=== PATIENT | male | born 1955 | race Caucasian/White ===

== ENCOUNTER 2021-12-26 11:00 | Outpatient (CLI) | payer BC, SELFPAY ==
[2021-12-26 22:16] LABS: Albumin* 4.2 g/dL (3.3-5.0)
[2021-12-26 22:17] LABS: Chloride* 100 mmol/L (96-114); Potassium* 4.1 mmol/L (3.6-5.1); Sodium* 136 mmol/L (135-149)
[2021-12-26 22:19] LABS: Aspartate Amino Transferase* 24 U/L (12-35); Bilirubin Total* 0.5 mg/dL (0.1-1.5); Blood Urea Nitrogen* 13 mg/dL (7-30); Carbon Dioxide* 29 mmol/L (20-32); Cholesterol* 248 mg/dL (90-199); Creatinine* 0.9 mg/dL (0.5-1.5); Estimated Glomerular Filt Rate 95 ml/min; Total Protein* 6.9 g/dL (6.0-8.3)
[2021-12-26 22:20] LABS: Alanine Aminotransferase* 16 U/L (4-50); Alkaline Phosphatase* 73 U/L (40-150); Glucose* 88 mg/dL (60-115); Triglycerides* 117 mg/dL (40-149)
[2021-12-26 22:52] LABS: HDL Cholesterol* 43 mg/dL (>=40); LDL Cholesterol Calculated 182 mg/dL (<100)
[2021-12-26 22:53] LABS: PSA Screen* < 0.06 ng/mL (0.10-4.00)
== END 2021-12-26 11:01 | disposition home or self-care (01) ==
PROVIDERS: PCP Physician Assistant Medical; Visit Provider Physician Assistant Medical
DX: Z00.00 Encounter for general adult medical examination without abnormal findings (principal); F41.9 Anxiety disorder, unspecified; Z12.5 Encounter for screening for malignant neoplasm of prostate; Z13.29 Encounter for screening for other suspected endocrine disorder; Z13.6 Encounter for screening for cardiovascular disorders
CPT/HCPCS: 80053; 80061; 84153; 84443

== ENCOUNTER 2022-01-31 09:27 | Outpatient (CLI) | payer BC, SELFPAY | END 2022-01-31 09:28 | disposition home or self-care (01) | LOC: LKVREF 09:28 | PROVIDERS: PCP Physician Assistant Medical; Visit Provider Physician Assistant Medical | DX: E03.9 Hypothyroidism, unspecified (principal) | CPT/HCPCS: 84443 ==

== ENCOUNTER 2022-03-30 09:57 | Outpatient (CLI) | payer BC, SELFPAY ==
[2022-03-30 14:49] LABS: Albumin* 4.1 g/dL (3.3-5.0)
[2022-03-30 14:51] LABS: Cholesterol* 117 mg/dL (90-199); Total Protein* 6.5 g/dL (6.0-8.3)
[2022-03-30 14:52] LABS: Alanine Aminotransferase* 18 U/L (4-50); Alkaline Phosphatase* 68 U/L (40-150); Aspartate Amino Transferase* 22 U/L (12-35); Bilirubin Direct* 0.2 mg/dL (0.0-0.5); Bilirubin Total* 0.5 mg/dL (0.1-1.5); HDL Cholesterol* 43 mg/dL (>=40); LDL Cholesterol Calculated 58 mg/dL (<100); Triglycerides* 80 mg/dL (40-149)
== END 2022-03-30 09:58 | disposition home or self-care (01) ==
PROVIDERS: PCP Physician Assistant Medical; Visit Provider Physician Assistant Medical
DX: E03.9 Hypothyroidism, unspecified (principal); E78.5 Hyperlipidemia, unspecified
CPT/HCPCS: 80061; 80076; 84443

== ENCOUNTER 2023-12-10 14:56 | Outpatient (CLI) | payer MEDICARE, SELFPAY | END 2023-12-10 14:57 | disposition home or self-care (01) | PROVIDERS: PCP Physician Assistant Medical; Visit Provider Physician Assistant Medical | DX: D64.9 Anemia, unspecified (principal); I10 Essential (primary) hypertension; E03.9 Hypothyroidism, unspecified; E78.5 Hyperlipidemia, unspecified; E66.9 Obesity, unspecified | CPT/HCPCS: 80053; 82607; 83540; 84443; G0103 ==

== ENCOUNTER 2023-12-25 10:14 | Outpatient (CLI) | payer MEDICARE, SELFPAY ==
--- NOTE | 2023-12-25 12:08 | W.ANESCHARGE ---
Anesthesia Charges Start Date/Time Anesthesia Start Date: 12/25/23 Anesthesia Start Time: 11:31 Stop Date/Time Anesthesia Stop Date: 12/25/23 Anesthesia Stop Time: 12:27
--- NOTE | 2023-12-25 12:32 | W.ANESCHARGE ---
Anesthesia Charges Start Date/Time Anesthesia Start Date: 12/25/23 Anesthesia Start Time: 11:31 Stop Date/Time Anesthesia Stop Date: 12/25/23 Anesthesia Stop Time: 12:27
== END 2023-12-25 10:15 | disposition home or self-care (01) ==
LOC: OP CLINIC 10:14
PROVIDERS: PCP Physician Assistant Medical; Visit Provider Surgery
DX: D50.9 Iron deficiency anemia, unspecified (principal); K44.9 Diaphragmatic hernia without obstruction or gangrene
CPT/HCPCS: 00813; 43239; 45385; 88305; 88341; 88342; J2704

== ENCOUNTER 2024-01-10 13:26 | Outpatient (CLI) | payer MEDICARE, SELFPAY | END 2024-01-10 13:27 | disposition home or self-care (01) | LOC: NFLDREF 01-11 11:58 | PROVIDERS: PCP Physician Assistant Medical; Referring Provider Physician Assistant Medical; Visit Provider Physician Assistant Medical | DX: E53.8 Deficiency of other specified B group vitamins (principal); D64.9 Anemia, unspecified | CPT/HCPCS: 82607; 82746; 86231; 86258; 86340; 86364 ==

== ENCOUNTER 2024-04-07 10:04 | Outpatient (CLI) | payer MEDICARE, SELFPAY | END 2024-04-07 10:05 | disposition home or self-care (01) | LOC: NFLDREF 04-08 02:47 | PROVIDERS: PCP Physician Assistant Medical; Referring Provider Physician Assistant Medical; Visit Provider Physician Assistant Medical | DX: D64.9 Anemia, unspecified (principal); E53.8 Deficiency of other specified B group vitamins | CPT/HCPCS: 82607 ==

== ENCOUNTER 2024-12-17 14:40 | Outpatient (CLI) | payer MEDICARE, SELFPAY | END 2024-12-17 14:41 | disposition home or self-care (01) | PROVIDERS: PCP Physician Assistant Medical; Visit Provider Physician Assistant Medical | DX: Z00.00 Encounter for general adult medical examination without abnormal findings (principal); D64.9 Anemia, unspecified; E53.8 Deficiency of other specified B group vitamins; I10 Essential (primary) hypertension; E03.9 Hypothyroidism, unspecified; R82.90 Unspecified abnormal findings in urine; Z12.5 Encounter for screening for malignant neoplasm of prostate | CPT/HCPCS: 80053; 80061; 82607; 82746; 84443; 87086; G0103 ==